=== PATIENT | female | born 1935 | race Caucasian/White ===

== ENCOUNTER 2019-06-03 07:52 | Inpatient (IN) ==
--- NOTE | 2019-06-03 07:58 | Emergency Department Note ---
Disposition Clinical Impression: UTI (urinary tract infection), Symptomatic anemia Disposition: Admitted As Inpatient Condition: Good Referrals: NONE,PCP [Non-Partnered Physician] - Forms: ED Satisfaction Letter, Work/School Release Time of Disposition: 09:36 General Adult HPI - General Chief complaint: ED General Medical Stated complaint: "dont feel good" Time Seen by Provider: 06/03/19 07:58 Source: patient Mode of arrival: ambulatory Limitations: no limitations Nursing Notes Reviewed: Yes Vital Signs Reviewed: Yes - History of Present Illness HPI Narrative: 83-year-old female who presents today states she just does not feel well. She states it has been less than a week. She states that it does hit her kind of quickly when she does not feel well. Has not had a cough but she does feel somewhat short of breath. She has some right upper quadrant and right lower quadrant abdominal pain. She states she is previously had her gallbladder and appendix removed. This has not been recently. She states that she is not a s moker. She denies any fever. She denies any diarrhea. She denies any vomiting. She denies any chest pain. Onset (ago): Just [employer] Pain Scale: 8 - Related Data Home Medications Medication Instructions Recorded Confirmed Omeprazole [PriLOSEC] 20 mg PO DAILY 08/07/15 12/28/17 Simvastatin [Zocor] 10 mg PO DAILY 12/28/17 12/28/17 dilTIAZem HCl [Diltiazem 24Hr ER] 300 mg PO DAILY 12/28/17 12/28/17 Previous Rx's Medication Instructions Recorded Acetaminophen [Tylenol] 650 mg PO Q6HR PRN tablet 01/04/18 Aspirin 162 mg PO BID tab.chew 01/04/18 Calcium Carbonate [Tums] 1,000 mg PO Q4HR PRN tab.chew 01/04/18 Cyclobenzaprine [Flexeril] 10 mg PO TID PRN tablet 01/04/18 Diltiazem CD (24hr) [Cardizem CD] 300 mg PO DAILY cap.er.24h 01/04/18 Levothyroxine [Synthroid] 100 mcg PO DAILY@0630 tablet 01/04/18 Lisinopril [Zestril] 20 mg PO DAILY tablet 01/04/18 Metoprolol [Lopressor] 25 mg PO BID tablet 02/25/18 Omeprazole [PriLOSEC] 20 mg PO DAILY@0630 capsule. 01/04/18 OxyCODONE Immed Rel [Roxicodone 5 10 mg PO Q6HR PRN 5 Days #30 tablet 01/04/18 MG] Sennosides/Docusate Sodium [Senna 1 each PO BID tablet 01/04/18 Plus] Simvastatin [Zocor] 10 mg PO HS tablet 01/04/18 Allergies Allergy/AdvReac Type Severity Reaction Status Date / Time No Known Allergies Allergy Verified 12/28/17 11:03 Review of Systems: All other systems are negative except as noted/marked Chart generated with voice recognition software Nursing notes reviewed Old records reviewed Past Medical History - Past Medical History Attestation: Yes The following information was validated with the patient. Source: patient, old records reviewed, nursing notes reviewed Medical history: Reports: cancer, GERD, hyperlipidemia, hypertension, thyroid disease, other Surgical history: Reports: cholecystectomy, thyroidectomy Psychiatric history: Reports: no psych history SUPERINTENDENT MEASUREMENT history: Reports: no SUPERINTENDENT MEASUREMENT history - Social History Smoking Status: Never smoker Smokeless Tobacco Status: No Alcohol use: Reports: none Drug use: Reports: none Physical Exam Physical exam General: NAD, VSS Head: normocephalic, atraumatic Eyes: EOMI, PERRLA mouth: Dry mucous membranes Neck: NO CLA, Supple Chest wall: normal rise, no crepitus, no deformity noted Lungs: moving air well, no distress Heart: RRR, Abd: soft, mild tenderness in the right upper and lower quadrants, no rebound no guarding BS normal : deferred rectal: + hemorrhoid, soft stool, brown, no blood MSK: strength equal in all four extremities Ext: moves all four extremities, no obvious deformities Skin: cap refill normal, warm, dry neuro : CN2-12 grossly intact, A&Ox3 Psych: normal affect, not anxious - General Limitations: no limitations General appearance: alert Course Vital Signs Temperature 97.9 F 06/03/19 07:53 Pulse Rate 90 06/03/19 07:53 Respiratory Rate 18 06/03/19 07:53 Blood Pressure 179/81 06/03/19 07:53 O2 Sat by Pulse Oximetry 94 06/03/19 07:53 Temperature 97.9 F 06/03/19 07:53 Pulse Rate 64 06/03/19 09:04 Respiratory Rate 16 06/03/19 09:04 Blood Pressure 146/66 06/03/19 09:04 O2 Sat by Pulse Oximetry 96 06/03/19 09:04 Oxygen Delivery Oxygen Delivery Nasal Cannula Medical Decision Making - MDM Narrative Medical decision making narrative: 83-year-old female presents today just saying she does not feel well. We addressed really found that she had a does we did spray the area and put all of her clothes into a bag. We did warn CT after we found the bugs. We also the accepting physician know that. Patient is a urinary tract infection and some right-sided flank pain associated with that. She states after one [place] she is feeling better. I did give her some Rocephin IV for that. I am giving her some IV fluids as her creatinine is up to 1.24 which is little elevated for her. We also found today that she has an anemia of 7.6. Her guaiac was negative. She has not had any bleeding that she is aware of. There is a mild amount of bleeding in her urine without (where the anemia is coming from. She has been increased shortness of breath for a while we did end up putting her on 2 L as her oxygen would dip into the upper 80s as she was resting. This was before she received any pain medication. I think this is investigated further. He talked over with the patient and she is comfortable being admitted for further investigation and workup. I spoke with Dr. Sutton who agreed to accept the patient. - Medical Records Medical records reviewed: Yes I reviewed the patient's medical records. - Lab Data Lab results reviewed: Yes I reviewed the patient's lab results. Result diagrams: 06/03/19 08:11 06/03/19 08:11 Lab Results 06/03/19 06/03/19 06/03/19 Range/Units 07:55 08:11 08:11 WBC 5.4 (4.3-11.1) K/mcL RBC 2.60 L (3.82-4.97) M/mcL Hgb 7.6 L (11.5-15.4) g/dL Hct 24.6 L (35.3-44.9) % MCV 94.6 (83.0-100.0) fL MCH 29.2 (28.0-33.3) pg MCHC 30.9 L (31.6-35.5) g/dL RDW 13.2 (11.5-14.5) % Plt Count 288 (140-400) K/mcL MPV 8.6 L (9.4-12.4) fL Immature Gran % 0.4 (0-4) % Seg Neutrophils % 58.5 % Lymphocytes % 31.9 % Monocytes % 7.7 % Eosinophils % 1.1 % Basophils % 0.4 % Neutrophils # 3.2 (1.6-8.9) K/mcL Lymphocytes # 1.7 (0.6-4.6) K/mcL Monocytes # 0.4 (0.0-1.3) K/mcL Eosinophils # 0.1 (0.0-0.6) K/mcL Basophils # 0.0 (0.0-0.2) K/mcL PT 10.4 (9.4-12.1) Seconds INR 0.9 APTT 31.4 (26.0-36.0) Seconds Sodium (136-145) mEq/L Potassium (3.5-5.1) mEq/L Chloride (98-107) mEq/L Carbon Dioxide (23-29) mEq/L BUN (8-23) mg/dL Creatinine (0.60-1.20) mg/dL Est GFR ( Amer) (> 60) Est GFR (Non-Af Amer) (> 60) BUN/Creatinine Ratio (6-26) Glucose (70-105) mg/dL Calculated Osmolality (280-300) Lactic Acid (0.5-2.2) mmol/L Calcium (8.6-10.3) mg/dL Magnesium (1.6-2.6) mg/dL Total Bilirubin (0.3-1.0) mg/dL Direct Bilirubin (0.0-0.2) mg/dL Indirect Bilirubin (0.0-1.2) mg/dL AST (13-39) Units/L ALT (7-52) Units/L Alkaline Phosphatase (34-104) Units/L Troponin I (< 0.04) ng/mL Serum Total Protein (6.4-8.9) g/dL Albumin (3.5-5.7) g/dL Globulin (2.4-3.5) g/dL Albumin/Globulin Ratio (1.1-2.2) Lipase (11-82) Units/L Urine Color Yellow (Yellow) Urine Clarity Cloudy A (Clear) Urine pH 6.0 (5.0-8.0) pH Units Ur Specific [place] >= 1.030 H (1.010-1.025) Urine Protein 100 H (Neg-Trace) mg/dL Urine Glucose (UA) Normal (Normal) mg/dL Urine Ketones Negative (Negative) mg/dL Urine Blood Moderate H (Negative) Urine Nitrite Positive A (Negative) Urine Bilirubin Negative (Negative) Urine Urobilinogen Normal (Normal) mg/dL Ur Leukocyte Esterase Large H (Negative) Urine Microscopic RBC 5-15 H (0-3) per hpf Urine Microscopic WBC TNTC H (0-3) per hpf Ur Squamous Epith Cells Few (None-Few) per lpf Urine Bacteria Many H (None-Few) per hpf Urine Mucus Few (Few) Ur Culture Indicated? YES A (NO) Stool Occult Blood (Negative) 06/03/19 06/03/19 06/03/19 Range/Units 08:11 08:11 09:15 WBC (4.3-11.1) K/mcL RBC (3.82-4.97) M/mcL Hgb (11.5-15.4) g/dL Hct (35.3-44.9) % MCV (83.0-100.0) fL MCH (28.0-33.3) pg MCHC (31.6-35.5) g/dL RDW (11.5-14.5) % Plt Count (140-400) K/mcL MPV (9.4-12.4) fL Immature Gran % (0-4) % Seg Neutrophils % % Lymphocytes % % Monocytes % % Eosinophils % % Basophils % % Neutrophils # (1.6-8.9) K/mcL Lymphocytes # (0.6-4.6) K/mcL Monocytes # (0.0-1.3) K/mcL Eosinophils # (0.0-0.6) K/mcL Basophils # (0.0-0.2) K/mcL PT (9.4-12.1) Seconds INR APTT (26.0-36.0) Seconds Sodium 134 L (136-145) mEq/L Potassium 3.5 (3.5-5.1) mEq/L Chloride 99 (98-107) mEq/L Carbon Dioxide 29 (23-29) mEq/L BUN 21 (8-23) mg/dL Creatinine 1.23 H (0.60-1.20) mg/dL Est GFR ( Amer) 50 L (> 60) Est GFR (Non-Af Amer) 42 L (> 60) BUN/Creatinine Ratio 17 (6-26) Glucose 104 (70-105) mg/dL Calculated Osmolality 281 (280-300) Lactic Acid 1.8 (0.5-2.2) mmol/L Calcium 9.0 (8.6-10.3) mg/dL Magnesium 1.9 (1.6-2.6) mg/dL Total Bilirubin 0.2 L (0.3-1.0) mg/dL Direct Bilirubin 0.0 (0.0-0.2) mg/dL Indirect Bilirubin 0.2 (0.0-1.2) mg/dL AST 12 L (13-39) Units/L ALT 8 (7-52) Units/L Alkaline Phosphatase 67 (34-104) Units/L Troponin I 0.03 (< 0.04) ng/mL Serum Total Protein 9.5 H (6.4-8.9) g/dL Albumin 3.4 L (3.5-5.7) g/dL Globulin 6.1 H (2.4-3.5) g/dL Albumin/Globulin Ratio 0.6 L (1.1-2.2) Lipase 36 (11-82) Units/L Urine Color (Yellow) Urine Clarity (Clear) Urine pH (5.0-8.0) pH Units Ur Specific [place] (1.010-1.025) Urine Protein (Neg-Trace) mg/dL Urine Glucose (UA) (Normal) mg/dL Urine Ketones (Negative) mg/dL Urine Blood (Negative) Urine Nitrite (Negative) Urine Bilirubin (Negative) Urine Urobilinogen (Normal) mg/dL Ur Leukocyte Esterase (Negative) Urine Microscopic RBC (0-3) per hpf Urine Microscopic WBC (0-3) per hpf Ur Squamous Epith Cells (None-Few) per lpf Urine Bacteria (None-Few) per hpf Urine Mucus (Few) Ur Culture Indicated? (NO) Stool Occult Blood Negative (Negative) - Radiology Data Radiology results reviewed: Yes I reviewed the patient's radiology results. EXAMINATION: ONE XRAY VIEW OF THE CHEST 06/03/2019 8:37 am COMPARISON: Abdomen and pelvis CT 06/03/2019, chest radiograph 01/02/2018 HISTORY: ORDERING SYSTEM PROVIDED HISTORY: weak Generalized weakness, nausea, and right-sided abdominal pain this morning. Initial evaluation. FINDINGS: Kyphotic positioning and slight patient rotation. Linear opacities in the left perihilar region and right lung base. No definite findings of pneumothorax or pleural effusion. Prominent left epicardial fat, partially effacing the left lateral costophrenic angle. Normal mediastinal and hilar contours. Partially obscured cardiac contour, appearing within normal limits on the concurrent CT. Diffuse osseous demineralization. No obvious acute fracture. XR/XR chest 1V portable IMPRESSION: Left perihilar and right basilar atelectasis and/or scarring. D/ / Wes Samuels MD / Wes Samuels MD Interpreting Provider: Wes Samuels MD INATION: CT OF THE ABDOMEN AND PELVIS WITHOUT CONTRAST 06/03/2019 8:34 am TECHNIQUE: CT of the abdomen and pelvis was performed without the administration of intravenous contrast. Multiplanar reformatted images are provided for review. Dose modulation, iterative reconstruction, and/or weight based adjustment of the mA/kV was utilized to reduce the radiation dose to as low as reasonably achievable. COMPARISON: Abdominal/pelvic CT, 06/18/2012 HISTORY: ORDERING SYSTEM PROVIDED HISTORY: RLQ pain Right-sided abdominal pain, nausea, generalized weakness. Acute symptoms this morning. Initial evaluation. FINDINGS: Lower Chest: The visualized lung bases are clear. Atherosclerotic aortic and coronary arterial calcifications are identified. There is a small hiatal hernia at the GE junction. Organs: Within the abdomen, the unenhanced liver, spleen, pancreas and adrenal glands are within normal limits. The gallbladder is not visualized and presumed surgically absent. The unenhanced kidneys are stable. Right renal cysts are unchanged. The largest is at the lower pole right kidney measuring 2.4 cm in diameter. No hydronephrosis, nephrolithiasis or ureterolithiasis is identified. GI/Bowel: The unopacified small bowel is grossly unremarkable. No free fluid or free air is identified. Retroperitoneum/Peritoneum: No obvious lymphadenopathy is seen although evaluation is limited by the lack of IV contrast. The abdominal aorta appears normal in caliber with prominent atherosclerotic calcifications. Pelvis: Within the pelvis, the urinary bladder is grossly unremarkable. Evaluation of the pelvis is slightly limited by beam hardening artifact from left femoral fixation hardware. There is redemonstration of a left ovarian cyst measuring approximately 2.7 cm in diameter. The uterus and adnexal structures are otherwise unremarkable. Bones/Soft Tissues: No acute osseous abnormalities are identified. CT/CT abd pelvis wo no iv no oral IMPRESSION: 1. No acute intra-abdominal or intrapelvic process. 2. Left ovarian cyst measures 2.7 cm in diameter, not significantly changed compared to the 2012 study. 3. Incidental findings include a small hiatal hernia, atherosclerotic vascular calcifications, right renal cysts, previous cholecystectomy and previous left femoral ORIF. D/ / Sergio Mendez MD / Sergio Mendez MD Interpreting Provider: Sergio Mendez MD - EKG Data EKG #1 EKG attestation: Yes I reviewed and interpreted this EKG. EKG results narrative: EKG interpreted by myself as sinus rhythm with rate of [address] [place]
[2019-06-03 08:16] LABS: Bilirubin,Urine Negative (Negative); Blood,Urine Moderate (Negative); Clarity,Urine Cloudy (Clear); Color,Urine Yellow (Yellow); Glucose,Urine (UA) Normal (Normal); Ketones,Urine Negative (Negative); Leukocyte Esterase,Urine Large (Negative); Nitrite,Urine Positive (Negative); Protein,Urine 100 mg/dL (Neg-Trace); Specific Gravity,Urine >= 1.030 (1.010-1.025); Urobilinogen,Urine Normal (Normal)
[2019-06-03 08:18] LABS: Basophils % 0.4 %; Eosinophils # 0.1 K/mcL (0.0-0.6); Eosinophils % 1.1 %; Hematocrit 24.6 % (35.3-44.9); Hemoglobin 7.6 g/dL (11.5-15.4); Immature Granulocytes % 0.4 % (0-4); Lymphocytes # 1.7 K/mcL (0.6-4.6); Lymphocytes % 31.9 %; Mean Corpuscular HGB Conc 30.9 g/dL (31.6-35.5); Mean Corpuscular Hemoglobin 29.2 pg (28.0-33.3); Mean Corpuscular Volume 94.6 fL (83.0-100.0); Mean Platelet Volume 8.6 fL (9.4-12.4); Monocytes # 0.4 K/mcL (0.0-1.3); Monocytes % 7.7 %; Neutrophils # 3.2 K/mcL (1.6-8.9); Platelet Count 288 K/mcL (140-400); Red Cell Distribution Width 13.2 % (11.5-14.5); Segmented Neutrophils % 58.5 %; White Blood Count 5.4 K/mcL (4.3-11.1)
[2019-06-03] MEDS ORDERED: cefTRIAXone 1,000 MG in Water for inj. (sterile) 10 ML IVP ONE (08:25)
[2019-06-03 08:26] LABS: WBC,Urine TNTC per hpf (0-3)
[2019-06-03 08:27] LABS: Bacteria,Urine Many per hpf (None-Few); Mucus,Urine Few (Few); Squamous Epithelial Cell,Urine Few per lpf (None-Few)
[2019-06-03 08:27] LABS: INR 0.9; Prothrombin Time 10.4 Seconds (9.4-12.1)
[2019-06-03 08:29] LABS: Activated Partial Thrombo Time 31.4 Seconds (26.0-36.0)
[2019-06-03 08:38] LABS: Albumin 3.4 g/dL (3.5-5.7); Albumin/Globulin Ratio 0.6 (1.1-2.2); Bilirubin,Indirect 0.2 mg/dL (0.0-1.2); Bilirubin,Total 0.2 mg/dL (0.3-1.0); Globulin 6.1 g/dL (2.4-3.5); Magnesium 1.9 mg/dL (1.6-2.6); Potassium 3.5 mEq/L (3.5-5.1); Total Protein 9.5 g/dL (6.4-8.9); Troponin I 0.03 ng/mL (< 0.04)
[2019-06-03] MEDS ORDERED: 0.9 % Sodium Chloride 1,000 ML IVC ONE (08:57)
[2019-06-03] MEDS ORDERED: *HR* HYDROcodone/Acet 5/325 mg TABLET PO ONE (08:57)
[2019-06-03] MEDS ORDERED: MOM Conc 10 ML UD.LIQ PO PRN (11:14)
[2019-06-03] MEDS ORDERED: 0.9 % Sodium Chloride 1,000 ML IVC SCH (11:14)
[2019-06-03] MEDS ORDERED: Mag Hydrox/Al Hydrox/Simeth 30 ML UDC PO PRN (11:14)
[2019-06-03] MEDS ORDERED: Naloxone 0.4 MG/ML INJ IVP PRN (11:14)
[2019-06-03] MEDS ORDERED: Acetaminophen 325 MG TABLET PO PRN (11:14)
[2019-06-03] MEDS ORDERED: Ondansetron 4 MG/2 ML VIAL IVP PRN (11:14)
--- NOTE | 2019-06-03 12:07 | Electrocardiograph Report ---
[place] [id number] Test Date: 2019-06-03 Pat Name: Lizeth Tian Department: EDP-16 Room: [facility] Gender: F Migration Agent: : [id number] Requested By: Jesica Jacques Order Number: [id number] Reading MD: Oj Russell Measurements Intervals [place] Rate: 82 P: 83 NC: 181 QRS: 84 QRSD: 91 T: 55 QT: 361 QTc: 422 Interpretive Statements Sinus rhythm Atrial premature complexes Electronically Signed On 06-03-2019 12:06:18 EDT by Oj Russell
--- NOTE | 2019-06-03 17:11 | Internal Med History&Physical ---
Date of Encounter: 06/03/19 Time of Encounter: 16:30 Assessment and Plan (1) UTI (urinary tract infection) Current visit: Yes Status: Acute She has been started empirically on IV Rocephin. Urine culture has been ordered. Lactobacillus will be added. Qualifiers: Urinary tract infection type: site unspecified Hematuria presence: with hematuria Qualified Code(s): N39.0 - Urinary tract infection, site not specified; R31.9 - Hematuria, unspecified (2) Anemia Current visit: Yes Status: Acute Present on all labs since August 2015. Likely due to multiple myeloma. Anemia testing will be done in a.m. Qualifiers: Anemia type: unspecified type Qualified Code(s): D64.9 - Anemia, unspecified (3) Multiple myeloma Current visit: No Status: Chronic She is uncertain of last oncology follow-up. Her PCP can continue to monitor/refer as indicated. Qualifiers: Multiple myeloma remission status: unspecified Qualified Code(s): C90.00 - Multiple myeloma not having achieved remission (4) Hypothyroidism Current visit: No Status: Chronic TSH in ER was 3.038. Continue present dose Synthroid. Qualifiers: Hypothyroidism type: unspecified Qualified Code(s): E03.9 - Hypothyroidism, unspecified (5) HTN (hypertension) Current visit: No Status: Chronic Continue lisinopril, metoprolol, and diltiazem. Qualifiers: Hypertension type: essential hypertension Qualified Code(s): I10 - Essential (primary) hypertension (6) Dementia Current visit: Yes Status: Suspected Suspected. MMSE will be done. Qualifiers: Dementia type: unspecified type Dementia behavioral disturbance: without behavioral disturbance Qualified Code(s): F03.90 - Unspecified dementia without behavioral disturbance Internal Medicine - H&P: HPI Chief complaint: Weakness, right thorax pain Admitted From: Emergency Dept Plans for Post Hospital Care: Home History of present illness: Ms. Tian is a 83 year old female who came to emergency room stating she had 3-4 week history of intermittent right thorax pain. She states it is unpredictable and not related to movement. She denies fever or dyspnea. She reports minimal cough with no significant productivity. She was evaluated in emergency room and was found to have evidence of UTI and significant anemia. She was admitted to [facility] floor for ongoing care needs. Respiratory history is significant for being a lifelong nonsmoker and having no documented chronic lung disease. She does not use home oxygen. She has multiple myeloma and has followed in the past with [facility] oncologists. She is uncertain of the date of the last visit with her oncologist but I note there been no expected myeloma follow-up labs since May 2015. She has not had other internal malignancies otherwise. Past Med Surg Social Fam HX - Past Medical History Medical history: cancer, GERD, hyperlipidemia, hypertension, thyroid disease, other Additional medical history: pt is a poor historian Psychiatric history: no psych history - Past Surgical History Surgical History: cholecystectomy, thyroidectomy Additional surgical history: Left hip ORIF Dec 2017 - Social History Smoking Status: Never smoker Smokeless Tobacco Status: No Alcohol use: none Drug use: none - Family History Father Family Member Ethnicity: Non- Living Status: Hx Family Cancer: Yes Brother Family Member Ethnicity: Non- Living Status: Hx Family Cardiac Disorders: Yes (CAD) Sister Family Member Ethnicity: Non- Living Status: Hx Family Cancer: Yes Mother Adopted: No Family Member Ethnicity: Non- Living Status: Hx Family Cardiac Disorders: Yes (HTN) Hx Family Respiratory Disorders: No Hx Family Cancer: No Hx Family GI Disorders: No Hx Family Endocrine Disorder: No Hx Family Neuromuscular Disorders: No Hx Family Neurologic Disorders: No Hx Family HEENT Disorders: No Hx Family Autoimmune Disorders: No Internal Medicine - H&P: Meds Omeprazole [PriLOSEC] 20 mg PO DAILY 08/07/15 [History] dilTIAZem HCl [Diltiazem 24Hr ER] 300 mg PO DAILY 12/28/17 [History] Lisinopril [Zestril] 20 mg PO DAILY tablet 01/04/18 [Rx] Simvastatin [Zocor] 10 mg PO HS tablet 01/04/18 [Rx] Levothyroxine [Synthroid] 112 mcg PO DAILY@0630 06/03/19 [History] Allergy/AdvReac Type Severity Reaction Status Date / Time No Known Allergies Allergy Verified 12/28/17 11:03 All Systems PM: A 10-system review of systems was performed and is negative for pertinent findings except as documented above in the HPI. Review of systems: Review of systems from her June 2016 [facility] history and physical reviewed and revised as below. Gen.: Her weight has been stable since the May 2013 [facility] hospitalization at approximately 85-90 kg Cardiovascular: She has history of hypertension but denies AL heart failure angina DVT or pulmonary embolus. Respiratory: As per history of present illness GI: She is status post cholecystectomy. 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 She denies other kidney or bladder disorders Neurologic: she denies large distribution strokes or seizures Endocrine: she has hyperlipidemia and hypothyroidism. She is status post post subtotal thyroid resection remotely for goiter. She does not have known diabetes. Hematology oncology: As per history of present illness Psychiatric: She denies anxiety depression or other mental health issues [place] skeletal: She had left hip fracture with intramedullary brandy repair surgery December 2017. 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 - Constitutional Vitals: Temp Pulse Resp BP Pulse Ox 98.4 F 77 17 172/75 93 06/03/19 15:57 06/03/19 15:57 06/03/19 15:57 06/03/19 15:57 06/03/19 15:57 Exam: Gen.: She is a well-developed well-nourished female sitting in a chair at bedside who appears in no acute distress. She is pleasant and talkative. HEENT: Head is atraumatic and normocephalic. Eyes: EOMI. There is no scleral icterus. Mouth: Mucosa is moist. Neck: Supple and nontender. There is no thyromegaly or adenopathy noted. Heart: Regular without murmurs gallops or ectopics Lungs: No wheezes or crackles are heard. Abdomen: Soft and nontender. Exam is limited because she is in the seated position. Extremities: There is no cyanosis edema or clubbing noted. Dorsalis pedis and posterior tibial pulses are trace palpable bilaterally. Neurologic: Mental status: She is talkative and a fair historian. She does not know her age but does know her present location. She answers questions appropriately overall. She does not remember some details of her history. Cranial nerves: Smile is symmetric. Forehead wrinkles bilaterally. Tongue protrudes midline. EOMI. Motor: There is no pronator drift. Cerebellar: Finger to nose is intact bilaterally. Skin: Warm and dry Internal Med - H&P Results - Labs CBC & Chem 7: 06/03/19 08:11 06/03/19 08:11 Labs: Short CBC 06/03/19 Range/Units 08:11 WBC 5.4 (4.3-11.1) K/mcL Hgb 7.6 L (11.5-15.4) g/dL Hct 24.6 L (35.3-44.9) % Plt Count 288 (140-400) K/mcL Neutrophils # 3.2 (1.6-8.9) K/mcL BMP 06/03/19 08:11 Sodium 134 L Potassium 3.5 Chloride 99 Carbon Dioxide 29 BUN 21 Creatinine 1.23 H Glucose 104 Calcium 9.0 Cardiac Enzymes 06/03/19 Range/Units 08:11 Troponin I 0.03 (< 0.04) ng/mL Liver Function 06/03/19 Range/Units 08:11 Total Bilirubin 0.2 L (0.3-1.0) mg/dL Direct Bilirubin 0.0 (0.0-0.2) mg/dL AST 12 L (13-39) Units/L ALT 8 (7-52) Units/L Alkaline Phosphatase 67 (34-104) Units/L Albumin 3.4 L (3.5-5.7) g/dL Urine 06/03/19 Range/Units 07:55 Urine Color Yellow (Yellow) Urine Clarity Cloudy A (Clear) Urine pH 6.0 (5.0-8.0) pH Units Ur Specific [place] >= 1.030 H (1.010-1.025) Urine Protein 100 H (Neg-Trace) mg/dL Urine Glucose (UA) Normal (Normal) mg/dL - Impressions ITS Impressions Abdomen/Pelvis CT 06/03/19 08:01 IMPRESSION: 1. No acute intra-abdominal or intrapelvic process. 2. Left ovarian cyst measures 2.7 cm in diameter, not significantly changed compared to the 2012 study. 3. Incidental findings include a small hiatal hernia, atherosclerotic vascular calcifications, right renal cysts, previous cholecystectomy and previous left femoral ORIF. D/ / Sergio Mendez MD / Sergio Mendez MD Interpreting Provider: Sergio Mendez MD Chest X-Ray 06/03/19 08:01 IMPRESSION: Left perihilar and right basilar atelectasis and/or scarring. D/ / Wes Samuels MD / Wes Samuels MD Interpreting Provider: Wes Samuels MD
[2019-06-03] MEDS ORDERED: cefTRIAXone 1,000 MG in Water for inj. (sterile) 10 ML IVP SCH (18:00)
[2019-06-03] MEDS: Lactobacillus 1 EACH CAP.SPRINK PO SCH (20:21)
[2019-06-03] MEDS: *HR* HYDROcodone/Acet 5/325 mg TABLET PO PRN (20:21)
[2019-06-03] MEDS: 0.45 % Sodium Chloride w/KCl 20 MEQ/1,000 ML MLS IVC SCH (20:45)
[2019-06-04] MEDS: *HR* HYDROcodone/Acet 5/325 mg TABLET PO PRN (05:52)
[2019-06-04 06:09] LABS: Basophils % 0.2 %; Eosinophils # 0.1 K/mcL (0.0-0.6); Eosinophils % 1.5 %; Hematocrit 20.5 % (35.3-44.9); Hemoglobin 6.2 g/dL (11.5-15.4); Immature Granulocytes % 0.5 % (0-4); Lymphocytes # 1.1 K/mcL (0.6-4.6); Lymphocytes % 26.6 %; Mean Corpuscular HGB Conc 30.2 g/dL (31.6-35.5); Mean Corpuscular Hemoglobin 29.1 pg (28.0-33.3); Mean Corpuscular Volume 96.2 fL (83.0-100.0); Mean Platelet Volume 9.7 fL (9.4-12.4); Monocytes # 0.5 K/mcL (0.0-1.3); Monocytes % 11.1 %; Platelet Count 247 K/mcL (140-400); Red Blood Count 2.13 M/mcL (3.82-4.97); Red Cell Distribution Width 13.2 % (11.5-14.5); Segmented Neutrophils % 60.1 %; White Blood Count 4.1 K/mcL (4.3-11.1)
[2019-06-04 06:36] LABS: BUN/Creatinine Ratio 18 (6-26); Blood Urea Nitrogen 19 mg/dL (8-23); Calcium 8.7 mg/dL (8.6-10.3); Carbon Dioxide 29 mEq/L (23-29); Chloride 102 mEq/L (98-107); Glucose 84 mg/dL (70-105); Osmolality,Calculated 281 (280-300); Sodium 135 mEq/L (136-145); eGFR For African Americans > 60 (> 60); eGFR For Non-African Americans 50 (> 60)
[2019-06-04 06:47] LABS: Neutrophils # 2.5 K/mcL (1.6-8.9)
--- NOTE | 2019-06-04 08:35 | Internal Med Progress Note ---
Date of Encounter: 06/04/19 Time of Encounter: 08:25 - Assessment and plan (1) UTI (urinary tract infection) Current Visit: Yes Status: Acute Assessment and plan: June 04. Urine culture report pending. Continue empiric IV Rocephin with lactobacillus. Qualifiers: Urinary tract infection type: site unspecified Hematuria presence: with hematuria Qualified Code(s): N39.0 - Urinary tract infection, site not specified; R31.9 - Hematuria, unspecified (2) Anemia Current Visit: Yes Status: Acute Assessment and plan: June 04. Hemoglobin has decreased to 6.2 with hydration. She will be ordered transfusion of 2 units packed red blood cells. Anemia testing pending. Stool Hemoccult negative. Suspect due to progression of multiple myeloma. Qualifiers: Anemia type: unspecified type Qualified Code(s): D64.9 - Anemia, unspecified (3) Multiple myeloma Current Visit: No Status: Chronic Assessment and plan: June 04. I encouraged her to follow-up with oncology. Qualifiers: Multiple myeloma remission status: unspecified Qualified Code(s): C90.00 - Multiple myeloma not having achieved remission (4) Hypothyroidism Current Visit: No Status: Chronic Assessment and plan: June 04. TSH in ER was 3.038. Continue present dose Synthroid Qualifiers: Hypothyroidism type: unspecified Qualified Code(s): E03.9 - Hypothyroidism, unspecified (5) HTN (hypertension) Current Visit: No Status: Chronic Assessment and plan: June 04. Continue lisinopril, metoprolol, and diltiazem Qualifiers: Hypertension type: essential hypertension Qualified Code(s): I10 - Essential (primary) hypertension (6) Dementia Current Visit: Yes Status: Suspected Assessment and plan: June 04. Suspected. MMSE has been ordered. Qualifiers: Dementia type: unspecified type Dementia behavioral disturbance: without behavioral disturbance Qualified Code(s): F03.90 - Unspecified dementia without behavioral disturbance - Subjective Interval history: June 04. She states she feels weak. She denies pain or dyspnea. - Constitutional Vitals: Temp Pulse Resp BP Pulse Ox 98.3 F 72 18 164/68 93 06/04/19 06:46 06/04/19 06:46 06/04/19 06:46 06/04/19 06:46 06/04/19 06:46 Exam: She is resting comfortably on the side of the bed and appears in no acute distress. She answers questions appropriately. Her affect is overall cheerful. I reviewed her medications and lab results. Internal Medicine: Result - Labs CBC & Chem 7: 06/04/19 05:16 06/04/19 05:16 Labs: Short CBC 06/04/19 Range/Units 05:16 WBC 4.1 L (4.3-11.1) K/mcL Hgb 6.2 L (11.5-15.4) g/dL Hct 20.5 L (35.3-44.9) % Plt Count 247 (140-400) K/mcL Neutrophils # 2.5 (1.6-8.9) K/mcL BMP 06/03/19 06/04/19 08:11 05:16 Sodium 134 L 135 L Potassium 3.5 4.0 Chloride 99 102 Carbon Dioxide 29 29 BUN 21 19 Creatinine 1.23 H 1.04 Glucose 104 84 Calcium 9.0 8.7 Cardiac Enzymes 06/03/19 Range/Units 08:11 Troponin I 0.03 (< 0.04) ng/mL Liver Function 06/03/19 Range/Units 08:11 Total Bilirubin 0.2 L (0.3-1.0) mg/dL Direct Bilirubin 0.0 (0.0-0.2) mg/dL AST 12 L (13-39) Units/L ALT 8 (7-52) Units/L Alkaline Phosphatase 67 (34-104) Units/L Albumin 3.4 L (3.5-5.7) g/dL - ABG Interpretation ABG results: PT/INR, D-dimer PT 10.4 Seconds (9.4-12.1) 06/03/19 08:11 - Impressions Impressions Abdomen/Pelvis CT 06/03/19 08:01 IMPRESSION: 1. No acute intra-abdominal or intrapelvic process. 2. Left ovarian cyst measures 2.7 cm in diameter, not significantly changed compared to the 2012 study. 3. Incidental findings include a small hiatal hernia, atherosclerotic vascular calcifications, right renal cysts, previous cholecystectomy and previous left femoral ORIF. D/ / Sergio Mendez MD / Sergio Mendez MD Interpreting Provider: Sergio Mendez MD Chest X-Ray 06/03/19 08:01 IMPRESSION: Left perihilar and right basilar atelectasis and/or scarring. D/ / Wes Samuels MD / Wes Samuels MD Interpreting Provider: Wes Samuels MD Consult Discharge Plan - Plan Referrals: Mari Wayne, RUPAL [Primary Care Provider] - 1 week
[2019-06-04 09:03] LABS: % Iron Saturation 8 % (15-50); Iron 30 mcg/dL (50-170); Transferrin 271 mg/dL (203-362)
[2019-06-04] MEDS: cefTRIAXone 1,000 MG in Water for inj. (sterile) 10 ML IVP SCH (09:03)
[2019-06-04] MEDS: Lactobacillus 1 EACH CAP.SPRINK PO SCH ×2 (09:05→21:02)
[2019-06-04] MEDS: Diltiazem CD (24hr) 300 MG CAPSULE PO SCH (09:05)
[2019-06-04] MEDS: Lisinopril 20 MG TABLET PO SCH (09:05)
[2019-06-04 09:23] LABS: Folate 9.4 ng/mL (3.0-16.0)
[2019-06-04 09:44] LABS: Ferritin < 8 ng/mL (10-120)
[2019-06-04] MEDS ORDERED: 0.9 % Sodium Chloride 1,000 ML ONE (11:02)
[2019-06-04] MEDS: 0.45 % Sodium Chloride w/KCl 20 MEQ/1,000 ML MLS IVC SCH ×2 (13:51→13:55)
[2019-06-04] MEDS ORDERED: 0.9 % Sodium Chloride 250 ML ONE (19:49)
[2019-06-05] MEDS ORDERED: 0.9 % Sodium Chloride 250 ML ONE (00:43)
[2019-06-05 06:27] LABS: Basophils % 0.2 %; Eosinophils # 0.1 K/mcL (0.0-0.6); Eosinophils % 1.6 %; Hematocrit 27.8 % (35.3-44.9); Immature Granulocytes % 0.2 % (0-4); Lymphocytes # 1.1 K/mcL (0.6-4.6); Lymphocytes % 26.7 %; Mean Corpuscular HGB Conc 32.4 g/dL (31.6-35.5); Mean Corpuscular Hemoglobin 29.9 pg (28.0-33.3); Mean Corpuscular Volume 92.4 fL (83.0-100.0); Mean Platelet Volume 9.1 fL (9.4-12.4); Monocytes # 0.4 K/mcL (0.0-1.3); Monocytes % 8.4 %; Neutrophils # 2.7 K/mcL (1.6-8.9); Platelet Count 220 K/mcL (140-400); Red Blood Count 3.01 M/mcL (3.82-4.97); Red Cell Distribution Width 13.7 % (11.5-14.5); Segmented Neutrophils % 62.9 %; White Blood Count 4.3 K/mcL (4.3-11.1)
[2019-06-05 06:42] LABS: BUN/Creatinine Ratio 17 (6-26); Blood Urea Nitrogen 17 mg/dL (8-23); Calcium 8.8 mg/dL (8.6-10.3); Carbon Dioxide 31 mEq/L (23-29); Chloride 102 mEq/L (98-107); Glucose 93 mg/dL (70-105); Osmolality,Calculated 279 (280-300); Potassium 4.3 mEq/L (3.5-5.1); Sodium 134 mEq/L (136-145); eGFR For African Americans > 60 (> 60); eGFR For Non-African Americans 51 (> 60)
[2019-06-05] MEDS: Lactobacillus 1 EACH CAP.SPRINK PO SCH ×2 (09:44→20:07)
[2019-06-05] MEDS: cefTRIAXone 1,000 MG in Water for inj. (sterile) 10 ML IVP SCH (09:45)
[2019-06-05] MEDS: Lisinopril 20 MG TABLET PO SCH (09:45)
[2019-06-05] MEDS: Diltiazem CD (24hr) 300 MG CAPSULE PO SCH (09:45)
[2019-06-05] MEDS: *HR* HYDROcodone/Acet 5/325 mg TABLET PO PRN (20:07)
--- NOTE | 2019-06-05 22:37 | Internal Med Progress Note ---
Date of Encounter: 06/05/19 Time of Encounter: 22:30 - Assessment and plan (1) UTI (urinary tract infection) Current Visit: Yes Status: Acute Qualifiers: Urinary tract infection type: site unspecified Hematuria presence: with hematuria Qualified Code(s): N39.0 - Urinary tract infection, site not specified; R31.9 - Hematuria, unspecified (2) Confusion Current Visit: Yes Status: Acute Assessment and plan: Prior related to urinary tract infection and being out of her usual environment (3) Dementia Current Visit: Yes Status: Suspected Qualifiers: Dementia type: unspecified type Dementia behavioral disturbance: without behavioral disturbance Qualified Code(s): F03.90 - Unspecified dementia without behavioral disturbance (4) Multiple myeloma Current Visit: Yes Status: Chronic Assessment and plan: She should follow up with the oncologist Qualifiers: Multiple myeloma remission status: unspecified Qualified Code(s): C90.00 - Multiple myeloma not having achieved remission (5) Hypothyroidism Current Visit: Yes Status: Chronic Assessment and plan: Asymptomatic continue Synthroid Qualifiers: Hypothyroidism type: unspecified Qualified Code(s): E03.9 - Hypothyroidism, unspecified (6) HTN (hypertension) Current Visit: Yes Status: Chronic Assessment and plan: Stable continue lisinopril metoprolol and diltiazem Qualifiers: Hypertension type: essential hypertension Qualified Code(s): I10 - Essential (primary) hypertension (7) Anemia Current Visit: Yes Status: Acute Assessment and plan: Hemoglobin about 9.0 after 2 units packed red blood cells Qualifiers: Anemia type: unspecified type Qualified Code(s): D64.9 - Anemia, unspecified (8) Unsteadiness Current Visit: Yes Status: Acute Assessment and plan: Assistance is needed - Time Spent With Patient 25 - 35 minutes - Subjective Interval history: 83-year-old female with history of dementia presents with worsening confusion and was shown having her tract infection. Despite being on Rocephin and lactobacilli she did not improve as quickly as expected and she was admitted as inpatient. Patient is not safe to live alone. Our social security specialist is trying to get ahold of family members. She will probably her qualifying stay over the weekend and that he goes assisted facility next week. Dr. Sutton saw her when she is admitted but I am covering this weekend. she had then hemoglobin down to 6.2 and was transfuse 2 units packed red blood cells and it is up to 9.0 she had a Mini-Mental Status exam done and she scored 15 out of which is moderate to severe dementia. She also has a history of multiple myeloma hypothyroidism hypertension acid reflux hyperlipidemia. She denies any chest pain shortness breath headache abdominal pain. Questions answered concerns addressed - Constitutional Vitals: Temp Pulse Resp BP Pulse Ox 98.2 F 51 17 146/60 90 06/05/19 18:48 06/05/19 18:48 06/05/19 18:48 06/05/19 18:48 06/05/19 20:19 Exam: General: Alert and oriented times self, no acute distress Lungs: Clear to auscultation bilaterally without wheezing or crackles Heart: Regular rate and rythms without murmer or rubs Abdomen: Soft, nontender, Extremities: no edema, redness Internal Medicine: Result - Labs CBC & Chem 7: 06/05/19 06:16 06/05/19 06:16 Labs: Short CBC 06/05/19 Range/Units 06:16 WBC 4.3 (4.3-11.1) K/mcL Hgb 9.0 L D (11.5-15.4) g/dL Hct 27.8 L (35.3-44.9) % Plt Count 220 (140-400) K/mcL Neutrophils # 2.7 (1.6-8.9) K/mcL BMP 06/05/19 06:16 Sodium 134 L Potassium 4.3 Chloride 102 Carbon Dioxide 31 H BUN 17 Creatinine 1.03 Glucose 93 Calcium 8.8 - ABG Interpretation ABG results: PT/INR, D-dimer PT 10.4 Seconds (9.4-12.1) 06/03/19 08:11 Consult Discharge Plan - Plan Referrals: Mari Wayne, RUPAL [Primary Care Provider] - 1 week
[2019-06-05] MEDS ORDERED: ALPRAZolam 0.25 MG TABLET PO PRN (23:33)
[2019-06-06] MEDS: 0.45 % Sodium Chloride w/KCl 20 MEQ/1,000 ML MLS IVC SCH (06:47)
[2019-06-06] MEDS: cefTRIAXone 1,000 MG in Water for inj. (sterile) 10 ML IVP SCH (08:25)
[2019-06-06] MEDS: Lactobacillus 1 EACH CAP.SPRINK PO SCH ×2 (08:26→19:57)
[2019-06-06] MEDS: Diltiazem CD (24hr) 300 MG CAPSULE PO SCH (08:27)
[2019-06-06] MEDS: Lisinopril 20 MG TABLET PO SCH (08:27)
--- NOTE | 2019-06-06 12:03 | Internal Med Progress Note ---
Date of Encounter: 06/06/19 Time of Encounter: 12:00 - Assessment and plan (1) Bradycardia Current Visit: Yes Status: Acute Assessment and plan: 06/06/19 stop the metoprolol and monitor (2) UTI (urinary tract infection) Current Visit: Yes Status: Acute Assessment and plan: 06/06/19 continue the Rocephin follow-up with a CBC with differential tomorrow and Dr. Sutton can decide if she needs more antibiotics Qualifiers: Urinary tract infection type: site unspecified Hematuria presence: with hematuria Qualified Code(s): N39.0 - Urinary tract infection, site not specified; R31.9 - Hematuria, unspecified (3) Confusion Current Visit: Yes Status: Acute Assessment and plan: Prior related to urinary tract infection and being out of her usual environment 06/06/19 confusion is about the same social media specialist will get family involved discharge planning (4) Dementia Current Visit: Yes Status: Suspected Assessment and plan: 06/06/19 social media specialist to get family involved for discharge planning Qualifiers: Dementia type: unspecified type Dementia behavioral disturbance: without behavioral disturbance Qualified Code(s): F03.90 - Unspecified dementia without behavioral disturbance (5) Multiple myeloma Current Visit: Yes Status: Chronic Assessment and plan: She should follow up with the oncologist 06/06/19 follow-up CBC. Oncologist is an option Qualifiers: Multiple myeloma remission status: unspecified Qualified Code(s): C90.00 - Multiple myeloma not having achieved remission (6) Hypothyroidism Current Visit: Yes Status: Chronic Assessment and plan: Asymptomatic continue Synthroid 06/06/19 still asymptomatic continue Synthroid Qualifiers: Hypothyroidism type: unspecified Qualified Code(s): E03.9 - Hypothyroidism, unspecified (7) HTN (hypertension) Current Visit: Yes Status: Chronic Assessment and plan: Stable continue lisinopril metoprolol and diltiazem 06/06/19 a little high but bradycardic so we will stop the metoprolol and add hydrochlorothiazide to the lisinopril and diltiazem follow-up BMP Qualifiers: Hypertension type: essential hypertension Qualified Code(s): I10 - Essential (primary) hypertension (8) Anemia Current Visit: Yes Status: Acute Assessment and plan: Hemoglobin about 9.0 after 2 units packed red blood cells 06/06/19 monitor CBC Qualifiers: Anemia type: unspecified type Qualified Code(s): D64.9 - Anemia, unspecified (9) Unsteadiness Current Visit: Yes Status: Acute Assessment and plan: Assistance is needed 06/06/19 continue rehabilitation and assistance - Subjective Interval history: 83-year-old female with history of dementia presents with worsening confusion and was shown having her tract infection. Despite being on Rocephin and lactobacilli she did not improve as quickly as expected and she was admitted as inpatient. Patient is not safe to live alone. Our social media specialist is trying to get ahold of family members. She will probably her qualifying stay over the weekend and that he goes senior care facility next week. Dr. Sutton saw her when she is admitted but I am covering this weekend. she had then hemoglobin down to 6.2 and was transfuse 2 units packed red blood cells and it is up to 9.0 she had a Mini-Mental Status exam done and she scored 15 out of which is moderate to severe dementia. She also has a history of multiple myeloma hypothyroidism hypertension acid reflux hyperlipidemia. She denies any chest pain shortness breath headache abdominal pain. Questions answered concerns addressed 06/06/19 patient denies any chest pain or shortness of breath she feels much better stronger. She is still confused but details. Urine culture came back with Escherichia coli sensitive to the Rocephin which she has been on since 06/04/19 since today is her third dose. Her kidney function are doing well. LOC the IV fluids. Follow-up labs in the morning make sure her kidneys. She was bradycardic so stopped metoprolol which she was on at home and start hydrochlorothiazide. layup worker will try to get ahold of family on Friday about discharge planning since she has dementia and unable take care of herself. Questions answered concerns addressed - Constitutional Vitals: Temp Pulse Resp BP Pulse Ox 97.5 F L 58 17 163/63 97 06/06/19 00:37 06/06/19 08:20 06/06/19 00:37 06/06/19 08:20 06/06/19 08:20 Exam: General: Alert and oriented times self, no acute distress Lungs: Clear to auscultation bilaterally without wheezing or crackles Heart: Regular rate and rythms without murmer or rubs Abdomen: Soft, nontender, Extremities: no edema, redness Internal Medicine: Result - Labs CBC & Chem 7: 06/05/19 06:16 06/05/19 06:16 - ABG Interpretation ABG results: PT/INR, D-dimer PT 10.4 Seconds (9.4-12.1) 06/03/19 08:11 Consult Discharge Plan - Plan Referrals: Mari Wayne, BOAT [employer]OT [Primary Care Provider] - 1 week
[2019-06-06] MEDS: hydroCHLOROthiazide 25 MG TABLET PO SCH (13:17)
[2019-06-07 05:13] LABS: Basophils % 0.5 %; Eosinophils # 0.1 K/mcL (0.0-0.6); Eosinophils % 1.6 %; Immature Granulocytes % 0.3 % (0-4); Lymphocytes # 1.1 K/mcL (0.6-4.6); Mean Corpuscular HGB Conc 32.1 g/dL (31.6-35.5); Mean Corpuscular Hemoglobin 29.4 pg (28.0-33.3); Mean Corpuscular Volume 91.5 fL (83.0-100.0); Mean Platelet Volume 9.4 fL (9.4-12.4); Monocytes # 0.5 K/mcL (0.0-1.3); Monocytes % 12.8 %; Platelet Count 216 K/mcL (140-400); Red Blood Count 3.06 M/mcL (3.82-4.97); Red Cell Distribution Width 13.4 % (11.5-14.5); Segmented Neutrophils % 54.8 %; White Blood Count 3.7 K/mcL (4.3-11.1)
[2019-06-07 05:34] LABS: BUN/Creatinine Ratio 18 (6-26); Blood Urea Nitrogen 19 mg/dL (8-23); Calcium 8.7 mg/dL (8.6-10.3); Carbon Dioxide 31 mEq/L (23-29); Chloride 101 mEq/L (98-107); Glucose 92 mg/dL (70-105); Osmolality,Calculated 282 (280-300); Potassium 3.7 mEq/L (3.5-5.1); Sodium 135 mEq/L (136-145); eGFR For African Americans > 60 (> 60); eGFR For Non-African Americans 50 (> 60)
--- NOTE | 2019-06-07 09:18 | Internal Med Progress Note ---
Date of Encounter: 06/07/19 Time of Encounter: 09:10 - Assessment and plan (1) UTI (urinary tract infection) Current Visit: Yes Status: Acute Assessment and plan: June 04. Urine culture report pending. Continue empiric IV Rocephin with lactobacillus. June 07. Urine culture showed Escherichia coli. She has completed 3 days of IV antibiotics and is asymptomatic. Discontinue antibiotics and probiotic.. Qualifiers: Urinary tract infection type: site unspecified Hematuria presence: with hematuria Qualified Code(s): N39.0 - Urinary tract infection, site not specified; R31.9 - Hematuria, unspecified (2) Anemia Current Visit: Yes Status: Acute Assessment and plan: June 04. Hemoglobin has decreased to 6.2 with hydration. She will be ordered transfusion of 2 units packed red blood cells. Anemia testing pending. Stool Hemoccult negative. Suspect due to progression of multiple myeloma. June 07. Hemoglobin stable at 9.0 today. Anemia testing showed iron 30, transferrin saturation 8%, transferrin 271, ferritin < 8, B12 493, and folate 9.4. She will be given IV iron replacement since she is very depleted and on PPI and would likely have an impaired iron absorption. Qualifiers: Anemia type: unspecified type Qualified Code(s): D64.9 - Anemia, unspecified (3) Multiple myeloma Current Visit: Yes Status: Chronic Assessment and plan: June 04. I encouraged her to follow-up with oncology. Qualifiers: Multiple myeloma remission status: unspecified Qualified Code(s): C90.00 - Multiple myeloma not having achieved remission (4) Hypothyroidism Current Visit: Yes Status: Chronic Assessment and plan: June 04. TSH in ER was 3.038. Continue present dose Synthroid Qualifiers: Hypothyroidism type: unspecified Qualified Code(s): E03.9 - Hypothyroidism, unspecified (5) HTN (hypertension) Current Visit: Yes Status: Chronic Assessment and plan: June 04. Continue lisinopril, metoprolol, and diltiazem June 07. Lopressor has been discontinued because of bradycardia. Continue lisinopril and diltiazem. Qualifiers: Hypertension type: essential hypertension Qualified Code(s): I10 - Essential (primary) hypertension (6) Dementia Current Visit: Yes Status: Suspected Assessment and plan: June 04. Suspected. MMSE has been ordered. June 07. MMSE score 15/30. Qualifiers: Dementia type: unspecified type Dementia behavioral disturbance: without behavioral disturbance Qualified Code(s): F03.90 - Unspecified dementia without behavioral disturbance (7) Low vitamin D level Current Visit: Yes Status: Acute Assessment and plan: June 07. Vitamin D level low at 12. Start vitamin D supplementation. - Subjective Interval history: June 04. She states she feels weak. She denies pain or dyspnea. June 07. She has no new complaints and states she feels better. - Constitutional Vitals: Temp Pulse Resp BP Pulse Ox 98.2 F 66 18 153/75 93 06/07/19 06:37 06/07/19 06:37 06/07/19 06:37 06/07/19 06:37 06/07/19 06:37 Exam: She is resting comfortably in a chair at bedside. Her affect is overall cheerful. Heart is regular without murmurs gallops or ectopics. Lungs are clear. Extremities show no pitting edema. I reviewed her medications and lab results. Internal Medicine: Result - Labs CBC & Chem 7: 06/07/19 04:58 06/07/19 04:58 Labs: Short CBC 06/07/19 Range/Units 04:58 WBC 3.7 L (4.3-11.1) K/mcL Hgb 9.0 L (11.5-15.4) g/dL Hct 28.0 L (35.3-44.9) % Plt Count 216 (140-400) K/mcL Neutrophils # 2.0 (1.6-8.9) K/mcL BMP 06/07/19 04:58 Sodium 135 L Potassium 3.7 Chloride 101 Carbon Dioxide 31 H BUN 19 Creatinine 1.04 Glucose 92 Calcium 8.7 - ABG Interpretation ABG results: PT/INR, D-dimer PT 10.4 Seconds (9.4-12.1) 06/03/19 08:11 Consult Discharge Plan - Plan Referrals: Mari Wayne, RUPAL [Primary Care Provider] - 1 week
[2019-06-07] MEDS: hydroCHLOROthiazide 25 MG TABLET PO SCH (09:23)
[2019-06-07] MEDS: Lisinopril 20 MG TABLET PO SCH (09:23)
[2019-06-07] MEDS: Diltiazem CD (24hr) 300 MG CAPSULE PO SCH (09:23)
[2019-06-07] MEDS: Lactobacillus 1 EACH CAP.SPRINK PO SCH (09:23)
[2019-06-07] MEDS: cefTRIAXone 1,000 MG in Water for inj. (sterile) 10 ML IVP SCH (09:24)
[2019-06-07] MEDS ORDERED: Iron Dextran Complex 1,000 MG in 0.9 % Sodium Chloride 500 ML IVPB ONE (11:00)
[2019-06-08 06:25] VITALS: BP 147/81
[2019-06-08] MEDS: Lisinopril 20 MG TABLET PO SCH (08:31)
[2019-06-08] MEDS: Diltiazem CD (24hr) 300 MG CAPSULE PO SCH (08:31)
[2019-06-08] MEDS ORDERED: hydroCHLOROthiazide 25 MG TABLET PO SCH (09:00)
--- NOTE | 2019-06-08 11:25 | Discharge Summary ---
Date of Encounter: 06/08/19 Time of Encounter: 11:12 - Discharge Diagnosis (1) UTI (urinary tract infection) Priority: Primary Status: Acute Qualifiers: Urinary tract infection type: site unspecified Hematuria presence: with hematuria Qualified Code(s): N39.0 - Urinary tract infection, site not specified; R31.9 - Hematuria, unspecified (2) Anemia Priority: Secondary Status: Acute Qualifiers: Anemia type: iron deficiency Iron deficiency anemia type: unspecified iron deficiency Qualified Code(s): D50.9 - Iron deficiency anemia, unspecified (3) Multiple myeloma Priority: Secondary Status: Chronic Qualifiers: Multiple myeloma remission status: unspecified Qualified Code(s): C90.00 - Multiple myeloma not having achieved remission (4) Hypothyroidism Priority: Secondary Status: Chronic Qualifiers: Hypothyroidism type: unspecified Qualified Code(s): E03.9 - Hypothyroidism, unspecified (5) HTN (hypertension) Priority: Secondary Status: Chronic Qualifiers: Hypertension type: essential hypertension Qualified Code(s): I10 - Essential (primary) hypertension (6) Dementia Priority: Secondary Status: Chronic Qualifiers: Dementia type: unspecified type Dementia behavioral disturbance: without behavioral disturbance Qualified Code(s): F03.90 - Unspecified dementia witho ut behavioral disturbance (7) Low vitamin D level Priority: Secondary Status: Chronic Hospital course: Ms. Tian is a 83 year old female who came to emergency room stating she had 3-4 week history of intermittent right thorax pain. She states it is unpredictable and not related to movement. She denies fever or dyspnea. She reports minimal cough with no significant productivity. She was evaluated in emergency room and was found to have evidence of UTI and significant anemia. She was admitted to [facility] floor for ongoing care needs. Initial orders were written by the emergency room physician. I saw her on June 03 and performed a history and physical. She was started empirically on IV Ro cephin. Lactobacillus was added. Urine culture returned showing Escherichia coli sensitive to Rocephin. She remained afebrile during her hospital stay. Antibiotics will not be continued at discharge. Anemia testing showed iron 30, transferrin saturation 8%, transferrin 271, ferritin < 8, B12 493, and folate 9.4. She was given 2 units packed red blood cells on June 04. She received an injection of iron dextran. Her PCP can monitor labs. Vitamin D level returned low at 12. She will be started on oral vitamin D supplement. She did not recall her last office visit to oncology for follow-up for multiple myeloma. I encouraged her to reestablish ongoing care with oncology. Her PCP can arrange this. MMSE score was 15/30 consistent with significant dementia. Her PCP can determine if medication for dementia should be started. On June 08 she felt stable for discharge home. She will follow with her PCP within 1 week. - Time Spent with Patient Total time spent providing and/or coordinating discharge services: - Discharge Medications Prescriptions: New Cholecalciferol (D-3) [Vitamin D] 1,000 unit PO DAILY #30 tablet Continued dilTIAZem HCl [Diltiazem 24Hr ER] 300 mg PO DAILY Lisinopril [Zestril] 20 mg PO DAILY tablet Simvastatin [Zocor] 10 mg PO HS tablet Omeprazole [PriLOSEC] 20 mg PO DAILY Levothyroxine [Synthroid] 112 mcg PO DAILY@0630 Home Medications: Omeprazole [PriLOSEC] 20 mg PO DAILY 08/07/15 [History] dilTIAZem HCl [Diltiazem 24Hr ER] 300 mg PO DAILY 12/28/17 [History] Lisinopril [Zestril] 20 mg PO DAILY tablet 01/04/18 [Rx] Simvastatin [Zocor] 10 mg PO HS tablet 01/04/18 [Rx] Levothyroxine [Synthroid] 112 mcg PO DAILY@0630 06/03/19 [History] Cholecalciferol (D-3) [Vitamin D] 1,000 unit PO DAILY #30 tablet 06/08/19 [Rx] Allergies/Adverse Reactions: Allergy/AdvReac Type Severity Reaction Status Date / Time No Known Allergies Allergy Verified 12/28/17 11:03 Date of admission: 06/04/19 14:03 Primary care physician: Mari Wayne - Constitutional Vitals: Temp Pulse Resp BP Pulse Ox 98.1 F 87 16 147/81 92 06/08/19 06:24 06/08/19 06:24 06/08/19 06:24 06/08/19 06:24 06/08/19 06:24 - Patient Status Disposition: Home, Self-Care Condition: Good - Discharge Instructions Follow Up With: Mari Wayne, FORENSICS TEAM DIRECTOR [Primary Care Provider] - 1 week - Diet and Activity Activity: resume usual activities as tolerated Diet: advance to your usual diet
--- NOTE | 2019-06-08 14:13 | Physician Discharge Referral ---
Home Health/Hosp Referral Info Transfer to: Home Health Attending Provider: Herman Provider in Charge Post Discharge: PCP (Mari Wayne CNP) - Diagnosis (1) UTI (urinary tract infection) Priority: Primary Status: Acute (2) Anemia Priority: Secondary Status: Acute (3) Multiple myeloma Priority: Secondary Status: Chronic (4) Hypothyroidism Priority: Secondary Status: Chronic (5) HTN (hypertension) Priority: Secondary Status: Chronic (6) Dementia Priority: Secondary Status: Chronic (7) Low vitamin D level Priority: Secondary Status: Chronic - Respiratory Orders Smoking Cessation: Smoking cessation has been advised. For more information, call the [place] Tobacco Quit Line at 9-596-MUXJ-NOW. - Diet/Nutrition Diet/Nutrition Orders: Regular - Activity Activity Orders: Walker - Services Needed Following services are medically necessary services: Nursing, Home Health Aide, Physical Therapy, Occupational Therapy - Transfer Medications Prescriptions: Cholecalciferol (D-3) [Vitamin D] 1,000 unit PO DAILY #30 tablet Home Medications: Omeprazole [PriLOSEC] 20 mg PO DAILY 08/07/15 [History] dilTIAZem HCl [Diltiazem 24Hr ER] 300 mg PO DAILY 12/28/17 [History] Lisinopril [Zestril] 20 mg PO DAILY tablet 01/04/18 [Rx] Simvastatin [Zocor] 10 mg PO HS tablet 01/04/18 [Rx] Levothyroxine [Synthroid] 112 mcg PO DAILY@0630 06/03/19 [History] Cholecalciferol (D-3) [Vitamin D] 1,000 unit PO DAILY #30 tablet 06/08/19 [Rx] Allergies/Adverse Reactions: Allergy/AdvReac Type Severity Reaction Status Date / Time No Known Allergies Allergy Verified 12/28/17 11:03 Certification: Further, I certify that my clinical findings support that this patient is homebound (i.e. absences from home require considerable and taxing effort and are for medical reasons or jehovah's witness services or infrequently or short duration when for other reasons) because: Homebound Reason: Leaving home requires considerable and taxing effort due to condition (Dementia, weakness) Attestation: My signature below is to certify that this patient is under my care and that I, or nurse practitioner, or a physician's dental assistant medical assistant working with me, has a [id number] encounter with this patient.
== END 2019-06-08 15:50 | disposition home or self-care (01) | DRG 690 ==
LOC: EMEROOPIK 07:52 → INPPIK 07:52
PROVIDERS: ADMIT Internal Medicine; ATTEND Internal Medicine